=== PATIENT | male | born 1950 | race Two or more races ===

== ENCOUNTER 2019-09-16 08:00 | Outpatient (CLI) | payer BC | END 2019-09-16 23:59 | disposition home or self-care (01) | LOC: WOU 08:00 | PROVIDERS: ATTEND Podiatrist Foot & Ankle Surgery | DX: M76.61 Achilles tendinitis, right leg (principal); R60.0 Localized edema; I10 Essential (primary) hypertension; Z87.891 Personal history of nicotine dependence; Z96.652 Presence of left artificial knee joint | CPT/HCPCS: G0463 ==